=== PATIENT | female | born 1960 | race American Indian/Alaskan Native ===

== ENCOUNTER 2020-07-25 14:24 | Emergency (ER) | payer OTHER, BC ==
[2020-07-25 14:35] VITALS: BP 173/84
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
== END 2020-07-25 15:30 | disposition home or self-care (01) ==
LOC: ED 14:24
DX: R06.00 Dyspnea, unspecified (principal); R52 Pain, unspecified; I10 Essential (primary) hypertension; E11.9 Type 2 diabetes mellitus without complications; Z79.899 Other long term (current) drug therapy; Z98.890 Other specified postprocedural states; Z88.2 Allergy status to sulfonamides; V49.49XA Driver injured in collision with other motor vehicles in traffic accident, initial encounter; Y92.410 Unspecified street and highway as the place of occurrence of the external cause; Y93.89 Activity, other specified; Y99.8 Other external cause status
CPT/HCPCS: 99282